=== PATIENT | female | born 1990 | race Native Hawaiian/Other Pacific Islander ===

== ENCOUNTER 2018-05-09 19:16 | Emergency (ER) | payer SELFPAY ==
[2018-05-09 20:33] LABS: PLATELET COUNT 302 10^3/uL (150-400)
--- NOTE | 2018-05-09 20:34 | EDPHY ---
H & P Stated Complaint: Overdose Source: Patient Exam Limitations: No limitations - Personal History LMP (Females 10-55): Now Current Tetanus/Diphtheria Vaccine: Yes Current Tetanus Diphtheria and Acellular Pertussis (TDAP): Yes - Medical/Surgical History Hx Asthma: Yes Hx Chronic Respiratory Disease: No Hx Diabetes: No Hx Cardiac Disease: No Hx Renal Disease: No Hx Cirrhosis: No Hx Alcoholism: No Hx HIV/AIDS: No Hx Splenectomy or Spleen Trauma: No Other PMH: denies - Social History Smoking Status: Current every day smoker Time Seen by Provider: 05/09/18 20:14 HPI/ROS: CHIEF COMPLAINT: Overdose, suicidal HISTORY OF PRESENT ILLNESS: The patient presents to the ED after she reportedly overdosed on a handful of ibuprofen 2 days ago. The patient reports prior history of overdose x4. The patient felt that she was having separation from her boyfriend which precipitated her symptoms today. The patient did go to [facility] prior to coming to the emergency department. They reportedly have arranged for inpatient psychiatric hospitalization and the patient has been sent here for medical clearance. The patient denies any acute abdominal pain, she denies any history of hematemesis or melena. She denies any additional acute complaints. REVIEW OF SYSTEMS: A comprehensive 10 point review of systems is otherwise negative aside from elements mentioned in the history of present illness. (Trever Krishna) - Physical Exam Exam: General Appearance: Alert, no distress Eyes: Pupils equal and round no pallor or injection ENT, Mouth: Mucous membranes moist Respiratory: There are no retractions, lungs are clear to auscultation Cardiovascular: Regular rate and rhythm Gastrointestinal: Abdomen is soft and nontender, no masses, bowel sounds normal Neurological: A&O, normal motor function, normal sensory exam, normal cranial nerves Skin: Warm and dry, no rashes Musculoskeletal: Neck is supple nontender Extremities: symmetrical, full range of motion Psychiatric: Patient is oriented X 3, there is no agitation, endorses suicidal ideation (Trever Krishna) Constitutional: Initial Vital Signs Temperature (C) 36.8 C 05/09/18 19:18 Heart Rate 69 05/09/18 19:18 Respiratory Rate 16 05/09/18 19:18 Blood Pressure 111/78 05/09/18 19:18 O2 Sat (%) 98 05/09/18 19:18 Allergies/Adverse Reactions: No Known Allergies Allergy (Unverified 05/09/18 19:21) Home Medications: Medication Instructions Recorded NK [No Known Home Meds] 05/09/18 Medical Decision Making ED Course/Re-evaluation: Patient presents to the ED after reported ibuprofen overdose several days ago. The patient is noted to be nontoxic and well-appearing. She has stable vital signs. The patient denies any headache, numbness or weakness. The patient does continue to endorse suicidal thoughts and symptoms of depression. The patient did undergo medical clearance. She has no evidence of a metabolic derangement, coagulopathy or hepatic injury from her overdose. Patient has been medically cleared for psychiatric placement. 11:00 p.m.: Patient will be turned over to Dr. Snow at shift change pending psychiatric disposition. (Trever Krishna) Differential Diagnosis: Differential diagnosis considered includes Tylenol overdose, aspirin overdose, hepatitis, lactic acidosis, renal failure, suicidal ideation (Trever Krishna) Other Provider: 23:[address] Krishna pending placement plan. 23:35 [facility] states that the patient is welcome to return there while they wait for placement. Patient family would prefer this. Family is here and will take her directly there. I feel that this is appropriate. Patient is vinicio for safety. Not currently suicidal. Will discharge back to [facility] according to the plan. (Humble Snow) - Data Points Laboratory Results: Laboratory Results 05/09/18 20:15 05/09/18 20:15 05/09/18 05/09/18 05/09/18 20:40 20:15 20:15 WBC RBC Hgb Hct MCV MCH MCHC RDW Plt Count MPV Neut % (Auto) Lymph % (Auto) [place] % (Auto) Eos % (Auto) Baso % (Auto) Nucleat RBC Rel Count Absolute Neuts (auto) Absolute Lymphs (auto) Absolute Monos (auto) Absolute Eos (auto) Absolute Basos (auto) Absolute Nucleated RBC Immature Gran % Immature Gran # PT INR APTT Sodium 135 mEq/L mEq/L (135-145) Potassium 4.2 mEq/L mEq/L (3.5-5.2) Chloride 104 mEq/L mEq/L (97-110) Carbon Dioxide 22 mEq/l mEq/l (22-31) Anion Gap 9 mEq/L mEq/L (6-14) BUN 28 mg/dL H mg/dL (7-23) Creatinine 1.3 mg/dL H mg/dL (0.6-1.0) Estimated GFR 49 Glucose 82 mg/dL mg/dL (70-100) Calcium 9.2 mg/dL mg/dL (8.5-10.4) Total Bilirubin 0.4 mg/dL mg/dL (0.1-1.4) Conjugated Bilirubin 0.4 mg/dL mg/dL (0.0-0.5) Unconjugated Bilirubin 0.0 mg/dL mg/dL (0.0-1.1) AST 28 IU/L IU/L (14-46) ALT 23 IU/L IU/L (9-52) Alkaline Phosphatase 67 IU/L IU/L (38-126) Total Protein 7.9 g/dL g/dL (6.3-8.2) Albumin 4.7 g/dL g/dL (3.5-5.0) Lipase 77 IU/L IU/L (23-300) Beta HCG, Qual NEGATIVE Salicylates < 1.0 mg/dL L mg/dL (2.0-20.0) Urine Opiates Screen NEGATIVE (NEGATIVE) Acetaminophen < 10 mcg/mL L mcg/mL (10-30) Urine Barbiturates NEGATIVE (NEGATIVE) Ur Phencyclidine Scrn NEGATIVE (NEGATIVE) Ur Amphetamine Screen NEGATIVE (NEGATIVE) U Benzodiazepines Scrn NEGATIVE (NEGATIVE) Urine Cocaine Screen NEGATIVE (NEGATIVE) U Marijuana (THC) Screen NON-NEGATIVE H (NEGATIVE) Ethyl Alcohol < 10 mg/dL mg/dL (0-10) 05/09/18 05/09/18 20:15 20:15 WBC 6.90 10^3/uL 10^3/uL (3.80-9.50) RBC 4.58 10^6/uL 10^6/uL (4.18-5.33) Hgb 13.4 g/dL g/dL (12.6-16.3) Hct 39.8 % % (38.0-47.0) MCV 86.9 fL fL (81.5-99.8) MCH 29.3 pg pg (27.9-34.1) MCHC 33.7 g/dL g/dL (32.4-36.7) RDW 13.7 % % (11.5-15.2) Plt Count 302 10^3/uL 10^3/uL (150-400) MPV 9.7 fL fL (8.7-11.7) Neut % (Auto) 63.1 % % (39.3-74.2) Lymph % (Auto) 28.0 % % (15.0-45.0) [place] % (Auto) 7.7 % % (4.5-13.0) Eos % (Auto) 0.6 % % (0.6-7.6) Baso % (Auto) 0.3 % % (0.3-1.7) Nucleat RBC Rel Count 0.0 % % (0.0-0.2) Absolute Neuts (auto) 4.36 10^3/uL 10^3/uL (1.70-6.50) Absolute Lymphs (auto) 1.93 10^3/uL 10^3/uL (1.00-3.00) Absolute Monos (auto) 0.53 10^3/uL 10^3/uL (0.30-0.80) Absolute Eos (auto) 0.04 10^3/uL 10^3/uL (0.03-0.40) Absolute Basos (auto) 0.02 10^3/uL 10^3/uL (0.02-0.10) Absolute Nucleated RBC 0.00 10^3/uL 10^3/uL (0-0.01) Immature Gran % 0.3 % % (0.0-1.1) Immature Gran # 0.02 10^3/uL 10^3/uL (0.00-0.10) PT 13.9 SEC SEC (12.0-15.0) INR 1.05 (0.83-1.16) APTT 30.9 SEC SEC (23.0-38.0) Sodium Potassium Chloride Carbon Dioxide Anion Gap BUN Creatinine Estimated GFR Glucose Calcium Total Bilirubin Conjugated Bilirubin Unconjugated Bilirubin AST ALT Alkaline Phosphatase Total Protein Albumin Lipase Beta HCG, Qual Salicylates Urine Opiates Screen Acetaminophen Urine Barbiturates Ur Phencyclidine Scrn Ur Amphetamine Screen U Benzodiazepines Scrn Urine Cocaine Screen U Marijuana (THC) Screen Ethyl Alcohol Departure - Departure Disposition: Home, Routine, Self-Care Clinical Impression: Intentional ibuprofen overdose, Suicidal ideation Condition: Good Instructions: Depression (ED) Additional Instructions: Go directly to [facility]. Referrals: NONE *PRIMARY CARE P,. [Primary Care Provider] - As per Instructions
[2018-05-09 20:42] LABS: INR 1.05 (0.83-1.16); PROTIME(PATIENT) 13.9 SEC (12.0-15.0)
[2018-05-09 23:46] VITALS: BP 108/78
== END 2018-05-09 23:46 | disposition home or self-care (01) ==
DX: T39.312A Poisoning by propionic acid derivatives, intentional self-harm, initial encounter (principal); R45.851 Suicidal ideations
CPT/HCPCS: 80305; G0480